=== PATIENT | male | born 1945 | race Caucasian/White ===

== ENCOUNTER → 2017-03-28 | Outpatient (CLI) | payer MEDICARE, OTHER | LOC: GMAH 11:25 | PROVIDERS: ATTEND Family Medicine | DX: Z00.00 Encounter for general adult medical examination without abnormal findings (principal); Z12.5 Encounter for screening for malignant neoplasm of prostate; R53.83 Other fatigue | CPT/HCPCS: 84443; 84550; G0103 ==

== ENCOUNTER → 2018-04-01 | Outpatient (CLI) | payer MEDICARE, OTHER | LOC: LAB.NP 10:35 | PROVIDERS: ATTEND Family Medicine | DX: E11.9 Type 2 diabetes mellitus without complications (principal); Z12.5 Encounter for screening for malignant neoplasm of prostate | CPT/HCPCS: 84443; 84550; G0103 ==

== ENCOUNTER → 2019-04-08 | Outpatient (CLI) | payer MEDICARE, OTHER | LOC: GMAH 10:45 | PROVIDERS: ATTEND Family Medicine | DX: E11.9 Type 2 diabetes mellitus without complications (principal); Z12.5 Encounter for screening for malignant neoplasm of prostate; Z12.11 Encounter for screening for malignant neoplasm of colon | CPT/HCPCS: 84443; 84550; G0103 ==

== ENCOUNTER 2019-08-29 15:01 | Observation (INO) | payer MEDICARE, OTHER ==
[~2019-08-29 15:01] MED LIST: DEXAMETHASONE INJ 10 MG/ML VIAL IV ONE; LIDOCAINE 1% 10 ML VIAL INJ ONE; METOPROLOL TARTRATE INJ 5 MG/5 ML VIAL IV ONE; PROPOFOL 200 MG/20 ML VIAL IV ONE; raNITIdine HCL INJ 25 MG/ML VIAL IV ONE
[2019-08-29] MEDS ORDERED: KETOROLAC TROMETHAMINE INJ 30 MG/ML VIAL IV ONE (15:22)
[2019-08-29] MEDS ORDERED: SODIUM CHLORIDE 0.9% (FLUSH) 10 ML SYG IV PRN ×2 (15:22→20:57)
[2019-08-29] MEDS ORDERED: SODIUM CHLORIDE 0.9% 1000ML 1,000 ML IVS ONE (15:23)
--- NOTE | 2019-08-29 15:24 | ED.PDOC ---
History of Present Illness - General Time Seen by Provider: 08/29/19 15:22 Source: patient - History of Present Illness Initial Comments: 74 yo male with PMH of kidney stones who presents with cc of RLQ pain. Sudden onset around 2:30 pm while sitting in recliner at home, located to RLQ with radiation towards suprapubic region, constant, 9/10 severity, worse with cough and movement and palpation, improved in ED on arrival with Toradol. States he tried to urinate just after pain began but had some difficulty and urine was dark. Also reports a muscle strain to same area about 2 weeks ago after lifting something heavy but pain has been improving and denies any masses/bulging. Denies fevers, chills, n/v/d, or other acute sx's. Last kidney stone was 20 years ago and too large to pass so underwent lithotripsy. Takes allopurinol to prevent kidney stones. Allergies/Adverse Reactions: Allergies Promethazine [From Phenergan] Allergy (Verified 08/29/19 15:28) Turmeric Adverse Reaction (Verified 08/29/19 15:29) Other Causes loose stools Home Medications: Ambulatory Orders Allopurinol [Zyloprim] 100 mg PO BEDTIME 08/29/19 Berlin-3 Fatty Acids [Berlin 3] 1 cap PO BEDTIME 08/29/19 metFORMIN HCL [Glucophage] 500 mg PO BEDTIME 08/29/19 Review of Systems - Review of Systems Review of Systems: 08/29/19 16:11 as per HPI All other Systems: Reviewed and Negative Family Medical History - Family History Father Family History: No Known Living Status: Unknown Physical Exam - Physical Exam General Appearance: Alert, Comfortable, No apparent distress Eye Exam: bilateral normal Ears, Nose, Throat: hearing grossly normal, normal ENT inspection, normal pharynx Neck: non-tender, full range of motion, supple, normal inspection Respiratory: chest non-tender, lungs clear, normal breath sounds, no respiratory distress Cardiovascular/Chest: normal peripheral pulses, regular rate, rhythm, no edema, no murmur Gastrointestinal/Abdominal: normal bowel sounds, soft, no organomegaly, other - Marked TTP Right lower quadrant with some guarding, no masses/bulging appreciated but limited exam given obesity Back Exam: normal inspection, CVA tenderness (R) Extremity: normal range of motion, non-tender, normal inspection, no pedal edema, no calf tenderness Neurologic: 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 No noted abscess or rupture. The appendix is retrocecal and lies along the posterolateral wall. No other acute processes noted, no evidence of kidney stones. WBC wnl without left shift or bandemia, remainder of labs unremarkable. Discussed case with Dr. Guo, general surgery, and an OR team has been assembled for appendectomy at 8 am tomorrow morning. Spoke with Clive Chiu who accepts to his service in the hospital. Will begin IV Abx with Zosyn. NPO. Pt remains stable, pain well-controlled with Toradol & morphine. Gorge Falk MD Billing #[id number] - Results/Orders Results/Orders: 08/29/19 15:22 Sodium Chloride 0.9% (Flush) [Saline Flush Syringe] 10 ml IV PRN PRN 08/29/19 19:26 ED Intent to Admit Routine Laboratory Results - last 24 hr 08/29/19 08/29/19 08/29/19 15:34 15:34 15:34 WBC 8.2 RBC 4.93 Hgb 16.1 Hct 47.1 MCV 95.6 H MCH 32.7 H MCHC 34.2 RDW 13.8 Plt Count 195 MPV 8.5 Absolute Neuts (auto) 5.60 Absolute Lymphs (auto) 1.60 Absolute Monos (auto) 0.80 Absolute Eos (auto) 0.20 Absolute Basos (auto) 0.00 Neutrophils % 68.2 Lymphocytes % 19.3 L Monocytes % 9.3 H Eosinophils % 2.7 Basophils % 0.5 Sodium 143 Potassium 3.7 Chloride 108 Carbon Dioxide 26 Anion Gap 12.7 BUN 15 Creatinine 0.70 BUN/Creatinine Ratio 21.4 H Random Glucose 117 H Serum Osmolality 286.8 Calcium 9.6 Total Bilirubin 0.4 Direct Bilirubin < 0.1 Indirect Bilirubin 0.3 AST 24 ALT 22 Alkaline Phosphatase 48 Serum Total Protein 7.3 Albumin 4.6 Lipase 45 Urine Color Urine Appearance Urine pH Ur Specific [place] Urine Protein Urine Glucose (UA) Urine Ketones Urine Blood Urine Nitrite Urine Bilirubin Urine Urobilinogen Ur Leukocyte Esterase Urine RBC Urine WBC Ur Epithelial Cells Urine Bacteria 08/29/19 16:15 WBC RBC Hgb Hct MCV MCH MCHC RDW Plt Count MPV Absolute Neuts (auto) Absolute Lymphs (auto) Absolute Monos (auto) Absolute Eos (auto) Absolute Basos (auto) Neutrophils % Lymphocytes % Monocytes % Eosinophils % Basophils % Sodium Potassium Chloride Carbon Dioxide Anion Gap BUN Creatinine BUN/Creatinine Ratio Random Glucose Serum Osmolality Calcium Total Bilirubin Direct Bilirubin Indirect Bilirubin AST ALT Alkaline Phosphatase Serum Total Protein Albumin Lipase Urine Color Yellow Urine Appearance Clear Urine pH 6.5 Ur Specific [place] 1.020 Urine Protein Negative Urine Glucose (UA) Negative Urine Ketones Negative Urine Blood Small H Urine Nitrite Negative Urine Bilirubin Negative Urine Urobilinogen 0.2 Ur Leukocyte Esterase Negative Urine RBC 0 Urine WBC 0 Ur Epithelial Cells 0 Urine Bacteria 0 Departure - Departure Clinical Impression: Acute appendicitis Time of Disposition: 19:25 Disposition: Admit Patient Condition: Fair Home Medications: Ambulatory Orders Allopurinol [Zyloprim] 100 mg PO BEDTIME 08/29/19 Berlin-3 Fatty Acids [Berlin 3] 1 cap PO BEDTIME 08/29/19 metFORMIN HCL [Glucophage] 500 mg PO BEDTIME 08/29/19 Decision To Admit - Decistion To Admit Decision to Admit Reason: Admit from ER Decision to Admit Date: 08/29/19 Decision to Admit Time: 19:26
[2019-08-29] MEDS ORDERED: MORPHINE SULFATE INJ 10 MG/ML VIAL IV ONE ×2 (16:08→19:16)
--- NOTE | 2019-08-29 16:58 | CT ---
EXAM: CT Abdomen and Pelvis Without Intravenous Contrast CLINICAL HISTORY: right lower quadrant pain, hx of kidney stones TECHNIQUE: Axial computed tomography images of the abdomen and pelvis without intravenous contrast. Sagittal and coronal reformatted images were created and reviewed. This CT exam was performed using one or more of the following dose reduction techniques: automated exposure control, adjustment of the mA and/or kV according to patient size, and/or use of iterative reconstruction technique. COMPARISON: 07/19/2012. FINDINGS: Limitations: None. Lung bases: Bilateral basilar atelectasis. ABDOMEN: Liver: Stable hepatic cysts. Gallbladder and bile ducts: Cholecystectomy. No ductal dilation. Pancreas: Unremarkable. No ductal dilation. Spleen: Unremarkable. No splenomegaly. Adrenals: Unremarkable. No mass. Kidneys and ureters: Unremarkable. No obstructing stones. No hydronephrosis. Stomach and bowel: Colonic diverticulosis present. No diverticulitis. No intestinal obstruction or inflammation. PELVIS: Appendix: The appendix is retrocecal and extends cranially terminating in the right paracolic gutter contiguous with the lateral abdominal wall. It is inflamed and thickened. Bladder: Unremarkable. No stones. Reproductive: Unremarkable as visualized. ABDOMEN and PELVIS: Intraperitoneal space: Unremarkable. No free air. No significant fluid collection. Bones/joints: No acute fracture. No dislocation. Soft tissues: There is a small fat containing umbilical hernia noted. Vasculature: There is atherosclerosis of the aorta. There is localized 3 cm dilatation just above the aortic bifurcation. No hemorrhage. Appearance stable compared to 2011. Lymph nodes: Unremarkable. No enlarged lymph nodes. IMPRESSION: 1. Acute appendicitis. Please see above discussion for description of atypical appendiceal location. 2. Stable 3 cm localized dilatation of the distal abdominal aorta stable since 2011. Recommend follow-up every 3 years. Electronically signed by: Siomara Reece MD 08/29/2019 4:57 PM PERSONNEL INTERVIEWER
[2019-08-29] MEDS ORDERED: PIPERACILLIN/TAZOBACTAM 4.5 GM in SODIUM CHLORIDE 0.9% 100ML 100 ML IVPB ONE (19:20)
[2019-08-29] MEDS ORDERED: SODIUM CHLORIDE 0.9% 100ML 100 ML IVPB ONE (19:29)
[2019-08-29] MEDS ORDERED: PIPERACILLIN/TAZOBACTAM 2.25 GM VIAL IVPB ONE (19:29)
--- NOTE | 2019-08-29 19:41 | HP ---
SUPERVISING PHYSICIAN: Edward Gonzalez MD CHIEF COMPLAINT: Right lower abdominal pain with CT evidence of acute appendicitis. HISTORY OF PRESENT ILLNESS: Mr. Akers is a 74 year-old male patient who presented to the Emergency Room today complaining of acute onset of right lower quadrant pain radiating down into the suprapubic region. He noted the pain was greater than 9 out of 10 on the pain scale worsened with palpation and coughing. He does note he had a similar episode about 2 weeks ago but it resolved with just some [id number] pain medicine and he did not seek any medical attention at that time. Today, he noted he was sitting at home watching football when the pain suddenly occurred and he initially thought he might be having problems with a kidney stone. He does have a previous medical history of chronic kidney stones and diabetes mellitus type 2. In the Emergency Room, he was denying any fever on admission, just pain, no actual nausea or vomiting, no diarrhea. His laboratory studies were all fairly unremarkable. White count was normal. Creatinine 0.7, coagulation studies normal. Urinalysis showed microhematuria, otherwise within normal limits. He had a CT of the abdomen and pelvis without contrast and per radiology interpretation there was note of acute appendicitis. There also was noted a stable 3 cm localized dilation of the abdominal aorta that is stable since 2012. Emergency Room physician, Dr. Falk, consulted with Dr. Aleman, general surgeon. Dr. Aleman has made arrangements for OR crew in the morning for patient to have a laparoscopic appendectomy initially. The patient was given a dose of Zosyn and is now going to be admitted for further evaluation and preoperative workup. He was admitted in stable condition. PAST MEDICAL HISTORY: 1. Diabetes mellitus type 2 on oral therapy. 2. Chronic kidney stones, last kidney stone reported to be 20 years previous. PAST SURGICAL HISTORY: 1. Cholecystectomy in 2015. 2. Tonsillectomy and adenoidectomy as a child. CODE STATUS: Full code. PRIMARY CARE PHYSICIAN: Scott Hernandez MD CURRENT MEDICATIONS: 1. Metformin 500 mg at bedtime. 2. [place] fatty 3 capsules at bedtime. 3. Allopurinol 100 mg at bedtime. ALLERGIES: PROMETHAZINE AND TURMERIC FAMILY HISTORY: Father at age 73 due to cancer of unknown origin. Mother at 90 from advanced age. He has one brother at 59 due to stomach cancer and infection. He has one sister who is currently alive at 70 years of age with known significant medical history. 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 He lives in [place], [place]. He is . He has a remote history of smoking but quit 20 years previously and utilizes alcohol on a very rare occasion, does not use illicit drugs. REVIEW OF SYSTEMS: CONSTITUTIONAL: Denies fevers, chills, general malaise or unintentional weight loss. HEENT: Negative for sore throats, earaches, nasal congestion, headaches, vision changes. RESPIRATORY: Negative for coughing, wheezing, shortness of breath. CARDIOVASCULAR: Denies chest pain, palpitations or syncopal episodes. GASTROINTESTINAL: As noted in history of present illness. Right lower quadrant pain. Denies nausea, vomiting, diarrhea, constipation or abdominal pain. GENITOURINARY: Negative for dysuria, hematuria, polyuria. NEUROLOGIC: Negative for syncopal episodes, vision changes, headaches, ataxia, seizures or any other focal neurological deficits. MUSCULOSKELETAL: Denies arthralgias, joint swelling. SKIN: Denies lesions, rashes, moles or skin changes. HEMATOLOGIC: Denies easy bruising or unexplained bleeding or transfusion reaction. PHYSICAL EXAMINATION: VITAL SIGNS: Temperature 98.1, pulse 82, blood pressure 160/98, respirations 16, oxygen saturation 97% on room air. Admission weight 89.1 kg. GENERAL: The patient is resting comfortably, appears to be in no acute distress. He is alert. HEENT: Tympanic membranes clear bilaterally. Oropharynx pink, moist without any lesions. NECK: Supple, non-tender, full range of motion. No jugular venous distention. CHEST: Lungs are clear to auscultation without any obvious rales, rubs or rhonchi or wheezing. CARDIOVASCULAR: Regular rate and rhythm without appreciable murmurs, rubs, or gallops. ABDOMEN: Soft, obese with some tenderness noted to the right lower quadrant on palpation with some guarding. No obvious masses. Bowel sounds are present. BACK: Without CVA or vertebral tenderness. EXTREMITIES: Without cyanosis, clubbing, or edema. NEUROLOGIC: Cranial nerves II through XII are grossly intact. Facial features are symmetrical. Extraocular movements within normal limits with no notable nystagmus. He was alert and oriented x 3. Skin was warm, pink and dry. LABORATORY: White count 8,200, hemoglobin 16.1, hematocrit 47.1, platelet count 195,000, differential showed to be without a left shift. Coagulation studies showed normal PT/PTT. Chemistries showed normal electrolytes, normal creatinine at 0.7. Glucose on admission 117. Liver functions were all within normal limits. Lipase normal at 45. Urinalysis just showed some microhematuria, otherwise within normal limits. A 12-lead EKG showed a sinus rhythm with no acute findings with ST or T-wave changes. No comparison was available at time of admission. RADIOLOGY: 2-view chest x-ray per radiology interpretation shows some minimal bibasilar densities suggestive of atelectasis but no consolidation. No pneumothorax. CT of the abdomen and pelvis without contrast per radiology interpretation show findings of acute appendicitis. Please see that report for details. There was also note of a small abdominal aortic aneurysm measuring 3 cm, appears stable from previous exam in 2012. ASSESSMENT: 1. Acute appendicitis as noted on CT with surgical consultation pending. 2. Diabetes mellitus type 2 on oral therapy of metformin. 3. Chronic kidney stones on allopurinol. Last kidney stone reportedly 20 years previous. PLAN: Mr. Akers is going to be placed in observation for surgical consultation by Dr. Aleman. The plan at this point is to take the patient to surgery in the morning for planned laparoscopic appendectomy. He has had a preoperative workup, EKG, chest films, labs, with no significant finding. He has pain control with morphine. He has Zofran for nausea. We will keep him saline- locked at this point as his labs are good, until he can go to surgery in the morning. He did get one dose of Zosyn for antibiotic coverage. Will hold off on additional coverage until Dr. Aleman can see the patient and postoperatively follow the patient as needed. Until the patient can transition to outpatient management, we will continue to monitor and treat as needed. #[id number] [facility]TDD
[2019-08-29] MEDS ORDERED: HYDROmorphone HCL INJ 2 MG/ML VIAL IV ONE (20:51)
[2019-08-29] MEDS ORDERED: ONDANSETRON INJ 4 MG/2 ML VIAL IV PRN (20:57)
[2019-08-29] MEDS ORDERED: MORPHINE SULFATE INJ 10 MG/ML VIAL IV PRN (20:57)
[2019-08-29] MEDS ORDERED: ACETAMINOPHEN IV 1000MG 1,000 MG in PREMIX BOTTLE 1 BOTTLE IVPB ONE (21:00)
[2019-08-29] MEDS ORDERED: IV SET AND CAP CHANGE INJ INJ SCH (21:00)
[2019-08-29] MEDS ORDERED: DEXTROSE 50% 25 GM/50 ML SYG IV PRN (21:03)
[2019-08-29] MEDS ORDERED: GLUCAGON INJ 1 MG VIAL SUBCU PRN (21:03)
[2019-08-29] MEDS ORDERED: ACETAMINOPHEN IV 1000MG 100 ML ONE (21:32)
--- NOTE | 2019-08-29 22:50 | RAD ---
EXAM: XR Chest, 2 Views CLINICAL HISTORY: The patient is 74 years old and is Male; preop TECHNIQUE: Frontal and lateral views of the chest. COMPARISON: Chest radiograph from 07/19/2012 FINDINGS: LUNGS: Minimal bibasilar densities suggesting atelectasis. The lungs are otherwise clear. PLEURAL SPACE: Unremarkable. No pneumothorax. HEART: Mild enlargement of the cardiac silhouette. MEDIASTINUM: Unremarkable. BONES/JOINTS: Degenerative changes of the spine. No acute fracture. IMPRESSION: Minimal bibasilar densities suggesting atelectasis. Electronically signed by: Griselda Ramos MD 08/29/2019 10:48 PM [facility]
[2019-08-30] MEDS ORDERED: CHLORHEXIDINE GLUCONATE 4 % 15 ML UD TOP ONE (04:44)
[2019-08-30] MEDS: PANTOPRAZOLE SODIUM IV 40 MG VIAL IV SCH (06:34)
[2019-08-30] MEDS: INSULIN LISPRO 100 UNITS/ML PEN SUBCU SCH ×4 (06:50→21:17)
[2019-08-30] MEDS ORDERED: BUPIVACAINE 0.25% W/EPI 50 ML VIAL INJ ONE ×2 (07:28→08:14)
[2019-08-30] MEDS ORDERED: MIDAZOLAM INJ 2 MG/2 ML VIAL ONE (07:55)
[2019-08-30] MEDS ORDERED: fentaNYL CITRATE INJ 50 MCG/ML AMP ONE ×2 (07:55→09:11)
[2019-08-30] MEDS ORDERED: KETAMINE HCL 100 MG/ML VIAL ONE (07:55)
[2019-08-30] MEDS ORDERED: ROCURONIUM BROMIDE 10 MG/ML VIAL ONE (07:55)
[2019-08-30] MEDS ORDERED: LACTATED RINGERS 1,000 ML IVS PRN (08:00)
[2019-08-30] MEDS ORDERED: ACETAMINOPHEN IV 1000MG 100 ML ONE (09:08)
[2019-08-30] MEDS ORDERED: SUGAMMADEX SODIUM 200 MG/2 ML VIAL IV ONE (09:11)
[2019-08-30] MEDS ORDERED: LACTATED RINGERS 1,000 ML IVS ONE (09:35)
--- NOTE | 2019-08-30 12:41 | OP ---
PREOPERATIVE DIAGNOSIS: Acute appendicitis. POSTOPERATIVE DIAGNOSIS: Acute appendicitis. PROCEDURE: Laparoscopic appendectomy. SURGEON: Edward Aleman MD ANESTHESIA: General and local. FINDINGS: The appendix was high-riding, retrocecal and inflamed. No evidence of perforation. COMPLICATIONS: None. ESTIMATED BLOOD LOSS: Less than 5 cc. SPECIMEN: Appendix. CONDITION: Stable. PLAN: Admitted. INDICATION: As stated. PROCEDURE: After completing informed consent, general anesthesia was induced. He was prepped and draped in sterile fashion. 0.5% Marcaine with epinephrine was used along the incision sites while maintaining upward traction. A madonna was made near the base of the umbilicus. The Veress needle was introduced. There was free flow of fluid into the peritoneal cavity which was insufflated to an appropriate level with CO2 gas. A 5 mm trocar was placed followed by the camera. There was no evidence of bleeding or bowel injury. The patient was positioned and the suprapubic port was placed. We then used a grasper to identify the appendix based on the CT and indeed it was up almost to the hepatic flexure so we modified a right lower quadrant port site a little bit and we proceeded with careful blunt dissection, dissecting out the base of the appendix. Going up we found the inflammatory plane. We were able to free the appendix up a bit but the mesoappendix itself was stuck a little posteromedially so I made a window, stapled across the base of the appendix and we were able to elevate it enough to continue stapling across the mesoappendix to near the tip which was freed up from some of the surrounding fatty tissue with cautery and then final staple load to remove it completely. The appendix was then removed with the EndoCatch bag. There was very minor oozing at the staple line. This was cauterized without difficulty and final irrigation revealed no evidence of bleeding even under low pressure. At that point, the suprapubic fascia was closed with #0 Vicryl using the suture passers. It was air tight and non-bleeding. The remaining trocars were removed. There was no bleeding from the trocar sites. The wounds were irrigated and closed with Monocryl dressing applied. He was awakened and taken to Recovery to be admitted. #[id number] [facility]TDD
[2019-08-30] MEDS ORDERED: SODIUM CHLORIDE 0.9% 100ML 100 ML IVPB ONE ×3 (13:18→19:32)
[2019-08-30] MEDS ORDERED: PIPERACILLIN/TAZOBACTAM 2.25 GM VIAL IVPB ONE ×3 (13:18→19:32)
[2019-08-30] MEDS: ACETAMINOPHEN W/COD #3 TAB 1 EA TAB PO PRN ×2 (13:29→20:16)
[2019-08-30] MEDS: PIPERACILLIN/TAZOBACTAM 4.5 GM in SODIUM CHLORIDE 0.9% 100ML 100 ML IVPB SCH ×2 (13:29→18:52)
--- NOTE | 2019-08-30 20:03 | PN ---
DATE: 08/30/19 SUPERVISING PHYSICIAN: Edward Gonzalze M.D. SUBJECTIVE: The patient was seen immediately postoperative after a laparoscopic appendectomy. He was alert, appeared to be comfortable. He was not having any nausea or vomiting. OBJECTIVE: VITAL SIGNS: Showing to be stable with temperature 98.3, pulse 79, blood pressure 143/83, satting 91% on room air, respirations 16. GENERAL: The patient is resting comfortably. He is alert once awake. CHEST: Clear to auscultation. HEART: Regular rate and rhythm. ABDOMEN: Obese, soft with some tenderness over the surgical sites. The patient splinted and started coughing with deep breathing. Bowel sounds were present. EXTREMITIES: Without any edema. NEUROLOGIC: He is alert and oriented times three. No postoperative laboratory studies. ASSESSMENT: 1. Acute appendicitis status post laparoscopic appendectomy performed by Dr. Aleman, general surgeon, immediate postoperative day #0. 2. Diabetes mellitus type 2 on oral therapy. 3. Hypertension, poorly controlled. 4. Chronic kidney stones on allopurinol. PLAN: Will follow Mr. Akers as he progressed through his postoperative phase. He is to ambulate. We are going to advance his diet as tolerated with anticipation of discharging tomorrow. Will hold off on Lovenox and Ecotrin ambulation and SCDs as there was reported a little oozing during surgery. He has pain management in the form of Tylenol #3s. He has been saline locked. We did continue postoperative antibiotics as prior to preoperative antibiotic with coverage with Zosyn per Dr. Aleman's request. Hopefully be able to discharge later tomorrow. Until we can transition to outpatient management will continue to monitor and treat as needed. [facility][id number] [facility]
[2019-08-30] MEDS ORDERED: metFORMIN HCL 500 MG TAB PO SCH (21:00)
[2019-08-30] MEDS ORDERED: ALLOPURINOL 100 MG TAB PO SCH (21:00)
[2019-08-30] MEDS ORDERED: SODIUM CHLORIDE 0.9% (FLUSH) 10 ML SYG IV SCH (21:00)
[2019-08-31] MEDS: PIPERACILLIN/TAZOBACTAM 4.5 GM in SODIUM CHLORIDE 0.9% 100ML 100 ML IVPB SCH ×2 (00:46→06:10)
[2019-08-31] MEDS ORDERED: SODIUM CHLORIDE 0.9% 100ML 100 ML IVPB ONE (00:50)
[2019-08-31] MEDS ORDERED: PIPERACILLIN/TAZOBACTAM 2.25 GM VIAL IVPB ONE (00:50)
[2019-08-31] MEDS: PANTOPRAZOLE SODIUM IV 40 MG VIAL IV SCH (06:10)
[2019-08-31] MEDS: INSULIN LISPRO 100 UNITS/ML PEN SUBCU SCH ×2 (07:36→12:50)
[2019-08-31 10:31] VITALS: BP 159/81; TEMP 98.1; O2SAT 93
[2019-08-31] MEDS ORDERED: DEXTROSE 10% 500ML IVPB PRN (11:30)
[2019-08-31] MEDS ORDERED: LISINOPRIL 10 MG TAB PO SCH (11:30)
--- NOTE | 2019-09-02 08:33 | DS ---
SUPERVISING PHYSICIAN: Abhishek Murphy MD ADMISSION DIAGNOSIS: 1. Acute appendicitis as noted on CT with surgical consultation pending. 2. Diabetes mellitus type 2 on oral therapy of metformin. 3. Chronic kidney stones on allopurinol. Last kidney stone reportedly 20 years previous. DISCHARGE DIAGNOSIS: 1. Acute appendicitis status post laparoscopic appendectomy performed by Dr. Aleman, general surgeon, postoperative day #1. 2. Diabetes mellitus type 2 on oral therapy. 3. Hypertension, poorly controlled. 4. Chronic kidney stones on allopurinol. REASON FOR HOSPITALIZATION: Mr. Akers is a 74 year-old male patient who presented to the Emergency Room today complaining of acute onset of right lower quadrant pain radiating down into the suprapubic region. He noted the pain was greater than 9 out of 10 on the pain scale worsened with palpation and coughing. He does note he had a similar episode about 2 weeks ago but it resolved with just some [id number] pain medicine and he did not seek any medical attention at that time. Today, he noted he was sitting at home watching football when the pain suddenly occurred and he initially thought he might be having problems with a kidney stone. He does have a previous medical history of chronic kidney stones and diabetes mellitus type 2. In the Emergency Room, he was denying any fever on admission, just pain, no actual nausea or vomiting, no diarrhea. His laboratory studies were all fairly unremarkable. White count was normal. Creatinine 0.7, coagulation studies normal. Urinalysis showed microhematuria, otherwise within normal limits. He had a CT of the abdomen and pelvis without contrast and per radiology interpretation there was note of acute appendicitis. There also was noted a stable 3 cm localized dilation of the abdominal aorta that is stable since 2011. Emergency Room physician, Dr. Falk, consulted with Dr. Aleman, general surgeon. Dr. Aleman has made arrangements for OR crew in the morning for patient to have a laparoscopic appendectomy initially. The patient was given a dose of Zosyn and is now going to be admitted for further evaluation and preoperative workup. He was admitted in stable condition. LABORATORY: White count was normal. Hemoglobin and hematocrit within normal limits. No left shift. Coagulation studies showed normal PT, PTT. Chemistries were unremarkable and within normal limits. Blood sugars were stable between 95 and 138. Urinalysis just showed a small amount of microscopic blood. RADIOLOGY: Abdominopelvic CT showed acute appendicitis. Please see that report for details. Also noted on that report was a small, stable, dilation of distal abdominal aorta since 2011, recommended followup in 3 years. Chest x-ray was without acute findings per radiologic interpretation. EKG preoperatively showed a sinus rhythm with no ST or T wave changes. HOSPITAL COURSE: Mr. Akers was admitted for acute abdominal pain secondary to acute appendicitis on 08/29/19. He was taken to surgery on 08/30/19. Please see Dr. Aleman's operative note for details. He had no intraoperative complications. He had just a little bit of oozing and given his advanced age, he was kept an additional night and discharged after reassessment and found to be clinically stable on 08/30/19. He was provided pain management, fluids and he was advanced on his diet, walking without any complications and had good pain control. The patient was fairly hypertensive and was started on lisinopril with good response postoperatively. DISCHARGE ASSESSMENT: VITAL SIGNS: Temperature 98.1. Pulse 58. Blood pressure 159/81. Respirations 16. Saturation 93% on room air. GENERAL: The patient is resting comfortably and appeared to be in no acute distress. CHEST: Clear to auscultation. HEART: Regular rate and rhythm. ABDOMEN: Soft with some postoperative tenderness, but no signs of infection or point tenderness. Positive bowel sounds. EXTREMITIES: Without edema. NEUROLOGICAL: Alert and oriented times 3. PLAN: Mr. Akers was discharged to followup with Dr. Aleman and Dr. Hernandez in the following weeks. He was to followup with wound management for postoperative care per Dr. Aleman's orders. He was to resume his diet as tolerated, activities as tolerated. No lifting or pulling. New medications at discharge include: 1. Tylenol 325 mg q.4h. as needed for pain. 2. Lisinopril 10 mg daily, #30, no refills. All other medications prior to hospitalization were continued. CONDITION ON DISCHARGE: Stable and improved. DISPOSITION: The patient was discharged to care of family members. [facility][id number] [facility]
== END 2019-08-31 12:40 | disposition home or self-care (01) ==
LOC: ER 15:01 → UNDOADMOB 19:40 → MS 19:40
PROVIDERS: ADMIT Nurse Practitioner Family; ATTEND Nurse Practitioner Family
DX: K35.80 Unspecified acute appendicitis (principal); I12.9 Hypertensive chronic kidney disease with stage 1 through stage 4 chronic kidney disease, or unspecified chronic kidney disease; E11.22 Type 2 diabetes mellitus with diabetic chronic kidney disease; N18.9 Chronic kidney disease, unspecified; K57.30 Diverticulosis of large intestine without perforation or abscess without bleeding; I77.811 Abdominal aortic ectasia; Z79.84 Long term (current) use of oral hypoglycemic drugs; Z79.899 Other long term (current) drug therapy; Z88.8 Allergy status to other drugs, medicaments and biological substances; Z87.442 Personal history of urinary calculi; Z87.891 Personal history of nicotine dependence; Z90.49 Acquired absence of other specified parts of digestive tract
CPT/HCPCS: 44970; 00840; 96366 ×2; 96365; 96375 ×2; 96376 ×3; J3010 ×2; J1170; J1885; J2270 ×3; J3490; J7030; J1100; J2250; J2543 ×5; J2780; J7050 ×5; J7120 ×2; 80048; 82948 ×6; 36415 ×2; 81001; 80076; 85025; 83690; 85730; 85610; 36416 ×5; 88304; 71046; 74176; 94760 ×3; 99285; 93005; G0378

== ENCOUNTER → 2020-04-19 | Outpatient (CLI) | payer MEDICARE, OTHER | LOC: GMA MATASK 10:45 | PROVIDERS: ATTEND Family Medicine | DX: I10 Essential (primary) hypertension (principal); Z12.5 Encounter for screening for malignant neoplasm of prostate; E11.9 Type 2 diabetes mellitus without complications | CPT/HCPCS: 84443; 84550; G0103 ==